=== PATIENT | male | born 1980 | race Caucasian/White ===

== ENCOUNTER 2017-11-03 05:59 | Inpatient (IN) | payer OTHER ==
[~2017-11-03] VITALS: Ht 167.6 cm; Wt 93.0 kg
[2017-11-03] MEDS ORDERED: EPINEPHRINE 1 MG/ML, 1ML ONE (06:48)
[2017-11-03] MEDS ORDERED: BUPIVACAINE/PF 0.5% ONE (06:48)
[2017-11-03] MEDS ORDERED: THROMBIN 5,000 UNIT VIAL TP ONE ×2 (06:48→08:02)
[2017-11-03] MEDS ORDERED: BACITRACIN 50,000 UNIT ONE (06:49)
[2017-11-03 07:01] VITALS: BP 131/90
[2017-11-03] MEDS ORDERED: LACTATED RINGERS 1,000 ML IV SCH (07:13)
[2017-11-03] MEDS ORDERED: FENTANYL PF 250 MCG/5ML ONE (07:13)
[2017-11-03] MEDS ORDERED: MIDAZOLAM 1 MG/ML, 2ML ONE (07:13)
[2017-11-03] MEDS ORDERED: ATOR80TA PO (07:16)
[2017-11-03] MEDS ORDERED: VENL75CA PO (07:16)
[2017-11-03] MEDS ORDERED: GABA300S PO (07:19)
[2017-11-03] MEDS ORDERED: METH750T87 PO (07:19)
[2017-11-03] MEDS ORDERED: TRAM50TA2 PO (07:19)
[2017-11-03] MEDS ORDERED: MIRT15TA4 PO (07:19)
[2017-11-03] MEDS ORDERED: DEXMEDETOMIDINE 200 MCG/2 ML ONE (07:20)
[2017-11-03] MEDS ORDERED: LABETALOL 5MG/ML, 20ML ONE (07:26)
[2017-11-03] MEDS ORDERED: LIDOCAINE-MPF 2% ,5ML ONE (07:26)
[2017-11-03] MEDS ORDERED: HYDROmorphone 1 MG/ML, 1ML IV PRN (08:00)
[2017-11-03] MEDS ORDERED: HYDROcodone/APAP 7.5-325MG/15ML UDC PO PRN (08:00)
[2017-11-03] MEDS ORDERED: BUPIVACAINE/PF-EPI 0.5% 1:200K INFIL ONE (08:00)
[2017-11-03] MEDS ORDERED: LABETALOL 5MG/ML, 20ML IV PRN (08:00)
[2017-11-03] MEDS ORDERED: ONDANSETRON 2MG/ML, 2ML IVPush PRN (08:00)
[2017-11-03] MEDS ORDERED: BACITRACIN 50,000 UNIT IM ONE (08:01)
[2017-11-03] MEDS ORDERED: SUCCINYLCHOLINE 20 MG/ML, 10ML ONE (08:13)
[2017-11-03] MEDS ORDERED: ONDANSETRON 2MG/ML, 2ML ONE (08:13)
[2017-11-03] MEDS ORDERED: PHENYLEPHRINE 10 MG/ML ONE (08:13)
[2017-11-03] MEDS ORDERED: NEOSTIGMINE 1 MG/ML, 10ML ONE (08:13)
[2017-11-03] MEDS ORDERED: ROCURONIUM 10 MG/ML,10ML ONE (08:13)
[2017-11-03] MEDS ORDERED: PROPOFOL 10 MG/ML, 20ML ONE (08:13)
[2017-11-03] MEDS ORDERED: DEXAMETHASONE 4 MG/ML, 1ML ONE (08:13)
[2017-11-03] MEDS ORDERED: CEFAZOLIN 1,000 MG ONE (08:13)
[2017-11-03] MEDS ORDERED: GLYCOPYRROLATE 0.2MG/1ML, 5ML ONE (08:13)
[2017-11-03] MEDS ORDERED: ACETAMINOPHEN 650 MG/20.3 ML UDC ONE (09:02)
[2017-11-03] MEDS ORDERED: OXYcodone 5 MG/5 ML ORAL.SOL UDC ONE ×2 (09:02→09:30)
[2017-11-03] MEDS ORDERED: FENTANYL PF 100 MCG/2ML ONE ×2 (09:03→10:08)
[2017-11-03] MEDS: FENTANYL PF 100 MCG/2ML IV PRN ×4 (09:05→10:10)
[2017-11-03] MEDS: OXYcodone 5 MG/5 ML ORAL.SOL UDC PO PRN ×2 (09:05→09:35)
[2017-11-03] MEDS: ACETAMINOPHEN 325 MG TABLET PO PRN ×2 (09:05→09:35)
[2017-11-03] MEDS ORDERED: ACETAMINOPHEN 325 MG TABLET ONE (09:30)
[2017-11-03] MEDS ORDERED: HYDROcodone/APAP 5/325 TABLET PO PRN (13:00)
[2017-11-03] MEDS ORDERED: BISACODYL 10 MG SUPP PR PRN (13:00)
[2017-11-03] MEDS ORDERED: PROMETHAZINE 25 MG/ML, 1ML IM PRN (13:00)
[2017-11-03] MEDS ORDERED: HYDROmorphone 2MG TABLET PO PRN (13:00)
[2017-11-03] MEDS ORDERED: DIPHENHYDRAMINE 50 MG CAPSULE PO PRN (13:00)
[2017-11-03] MEDS ORDERED: HYDROmorphone 2 MG/ML, 1ML IM PRN (13:00)
[2017-11-03] MEDS ORDERED: DIPHENHYDRAMINE 50 MG/ML, 1ML IVPush PRN (13:00)
[2017-11-03] MEDS ORDERED: MAGNESIUM HYDROXIDE 8%, 30ML UDC PO PRN (13:00)
[2017-11-03] MEDS: NS + 20MEQ KCL 1,000 ML IV SCH (13:00)
[2017-11-03] MEDS ORDERED: ONDANSETRON 2MG/ML, 2ML IV PRN (13:00)
[2017-11-03] MEDS ORDERED: DIPHENHYDRAMINE 50 MG/ML, 1ML IM PRN (13:00)
[2017-11-03 13:05] VITALS: BP 115/74
[2017-11-03] MEDS: METHOCARBAMOL 750 MG TABLET PO PRN ×2 (14:37→22:38)
[2017-11-03] MEDS: CEFAZOLIN PMX 1GM/50ML 50 ML IVPB SCH ×2 (15:33→23:50)
[2017-11-03] MEDS ORDERED: OXYC-307 PO (15:42)
[2017-11-03 20:18] VITALS: BP 117/79
[2017-11-04 00:04] VITALS: BP 113/72
[2017-11-04] MEDS: NS + 20MEQ KCL 1,000 ML IV SCH (01:30)
[2017-11-04 03:30] VITALS: BP 110/70
[2017-11-04 07:10] VITALS: BP 110/68
[2017-11-04] MEDS: OXYcodone/APAP 5/325MG TABLET PO PRN ×2 (07:49→09:10)
[2017-11-04] MEDS: METHOCARBAMOL 750 MG TABLET PO PRN (07:50)
[2017-11-04] MEDS ORDERED: SENNA/DOCUSATE TABLET PO SCH (09:00)
[2017-11-04] MEDS ORDERED: OXYC-307 PO (10:24)
== END 2017-11-04 11:30 | disposition home or self-care (01) | DRG 473 ==
LOC: OUT 05:59 → 4NOR 10:41 → OUT 11:02
PROVIDERS: ADMIT Neurological Surgery; ATTEND Neurological Surgery
PROC: 01N10ZZ Release Cervical Nerve, Open Approach (ICD-10-PCS; 2017-11-03)
PROC: 0RB30ZZ Excision of Cervical Vertebral Disc, Open Approach (ICD-10-PCS; 2017-11-03)
PROC: 0RG10A0 Fusion of Cervical Vertebral Joint with Interbody Fusion Device, Anterior Approach, Anterior Column, Open Approach (ICD-10-PCS; principal; 2017-11-03 07:30)
DX: M48.02 Spinal stenosis, cervical region (principal); F32.9 Major depressive disorder, single episode, unspecified; F41.9 Anxiety disorder, unspecified; F43.10 Post-traumatic stress disorder, unspecified; M47.22 Other spondylosis with radiculopathy, cervical region; M19.90 Unspecified osteoarthritis, unspecified site; G43.909 Migraine, unspecified, not intractable, without status migrainosus; Z87.01 Personal history of pneumonia (recurrent)
CPT/HCPCS: 72040; C1713; C1776; J0171; J0690; J1100; J2250; J2270; J2405; J2704; J2710; J3010; J3490; J0330; J2370; J7120